=== PATIENT | female | born 1995 | race Caucasian/White ===

== ENCOUNTER 2016-11-03 11:26 | Emergency (ER) | payer MEDICAID ==
[~2016-11-03] VITALS: Ht 162.6 cm; Wt 74.8 kg
[~2016-11-03 11:26] MED LIST: ALBUPOW26; PRE NATAL VITAMINS
[2016-11-03 12:02] LABS: Basophils # (auto) 0.1 uL; Basophils % (auto) 0.6 % (0.0-2.0); Eosinophils # (auto) 0.1 uL; Eosinophils % (auto) 0.8 % (0.0-7.0); Hematocrit 37.5 % (36.0-46.0); Hemoglobin 12.6 g/dL (12.2-16.2); Lymphocytes # (auto) 1.5 uL; Lymphocytes % (auto) 17.4 % (10.0-50.0); Mean Corpuscular Hemoglobin 29.9 pg (28.0-32.0); Mean Corpuscular Hgb Conc. 33.6 g/dL (32.0-36.0); Mean Corpuscular Volume 89.1 fL (80.0-100.0); Monocytes # (auto) 0.7 uL; Monocytes % (auto) 7.5 % (0.0-12.0); Neutrophils # (auto) 6.4 uL; Neutrophils % (auto) 73.7 % (37.0-80.0); Platelet Count (auto) 254 10^3/uL (140-450); Red Cell Distribution Width 12.9 % (11.6-16.0); White Blood Cell 8.7 10^3/uL (4.4-10.8)
[2016-11-03 12:07] LABS: Urine Bilirubin Negative (Negative); Urine Blood Negative /uL (Negative); Urine Color Straw (Yellow); Urine Glucose Normal (Normal); Urine Ketone Negative (Negative); Urine Nitrite Negative (Negative); Urine RBC 6 /hpf (0 - 4); Urine Squamous Epithelial Cell MOD /hpf (<5); Urine Urobilinogen Normal (Negative); Urine pH 6.5 (5.0-8.0)
[2016-11-03 12:42] LABS: Albumin 3.8 g/dL (3.4-5.0); BUN/Creatinine Ratio 8.1; Bilirubin, Total 0.3 mg/dL (0.2-1.0); Calcium 8.8 mg/dL (8.5-10.1); Potassium 3.8 mmol/L (3.5-5.1); Total Protein 7.8 g/dL (6.4-8.2)
[2016-11-03] MEDS ORDERED: SODIUM CHLORIDE 0.9% 1,000 ML IVB ONE (13:13)
[2016-11-03] MEDS ORDERED: cefTRIAXone 1GM/50ML D5W 50 ML IV ONE (13:15)
[2016-11-03] MEDS ORDERED: ONDANSETRON HCL 4 MG/2 ML VIAL IV ONE (13:15)
[2016-11-03 14:55] VITALS: BP 135/78
== END 2016-11-03 15:20 | disposition home or self-care (01) ==
LOC: ER 11:26
DX: N39.0 Urinary tract infection, site not specified (principal); K52.9 Noninfective gastroenteritis and colitis, unspecified
CPT/HCPCS: 36415; 80053; 81001; 81025; 85025; 94761; 96365; 96375; 99284; J0696; J2405; J7030

== ENCOUNTER 2016-11-23 08:47 | Emergency (ER) | payer MEDICAID ==
[~2016-11-23] VITALS: Ht 162.6 cm; Wt 72.6 kg
[2016-11-23 08:57] VITALS: BP 128/54
== END 2016-11-23 11:55 | disposition home or self-care (01) ==
LOC: ER 08:47
DX: S90.31XA Contusion of right foot, initial encounter (principal); J45.909 Unspecified asthma, uncomplicated; X58.XXXA Exposure to other specified factors, initial encounter; Y93.89 Activity, other specified; Y99.8 Other external cause status; Y92.89 Other specified places as the place of occurrence of the external cause
CPT/HCPCS: 73630

== ENCOUNTER 2017-01-20 14:18 | Emergency (ER) | payer MEDICAID ==
[~2017-01-20] VITALS: Ht 162.6 cm; Wt 81.6 kg
[2017-01-20 14:32] VITALS: BP 132/77
[2017-01-20 14:53] LABS: Basophils # (auto) 0 uL; Basophils % (auto) 0.5 % (0.0-2.0); Eosinophils # (auto) 0.1 uL; Eosinophils % (auto) 1.5 % (0.0-7.0); Hematocrit 40.1 % (36.0-46.0); Hemoglobin 13.5 g/dL (12.2-16.2); Lymphocytes # (auto) 1.8 uL; Lymphocytes % (auto) 25.2 % (10.0-50.0); Mean Corpuscular Hemoglobin 30.6 pg (28.0-32.0); Mean Corpuscular Hgb Conc. 33.7 g/dL (32.0-36.0); Mean Platelet Volume 8.8 fL (7.4-10.4); Monocytes # (auto) 0.6 uL; Monocytes % (auto) 8.5 % (0.0-12.0); Neutrophils # (auto) 4.6 uL; Neutrophils % (auto) 64.3 % (37.0-80.0); Platelet Count (auto) 312 10^3/uL (140-450); Red Cell Distribution Width 12.8 % (11.6-16.0); White Blood Cell 7.2 10^3/uL (4.4-10.8)
[2017-01-20 15:14] LABS: Albumin 3.8 g/dL (3.4-5.0); Alkaline Phosphatase 98 U/L (45-117); Anion Gap 7 (5-15); Aspartate Aminotransferase 18 U/L (15-37); BUN/Creatinine Ratio 14.4; Bilirubin, Total 0.2 mg/dL (0.2-1.0); Blood Urea Nitrogen 14 mg/dL (7-18); Calcium 8.9 mg/dL (8.5-10.1); Carbon Dioxide 28 mmol/L (21-32); Chloride 105 mmol/L (98-107); GFR African American 92 mL/min; GFR Non-African American 76 mL/min; Glucose 114 mg/dL (74-106); Magnesium 2.5 mg/dL (1.6-2.6); Potassium 3.8 mmol/L (3.5-5.1); Sodium 140 mmol/L (136-145); Total Protein 8.1 g/dL (6.4-8.2)
== END 2017-01-20 18:56 | disposition left against medical advice (07) ==
LOC: ER 14:43
DX: R07.9 Chest pain, unspecified (principal); Z53.21 Procedure and treatment not carried out due to patient leaving prior to being seen by health care provider
CPT/HCPCS: 36415; 80053; 83735; 84484; 85025

== ENCOUNTER → 2018-10-17 | Outpatient (CLI) | payer MEDICAID ==
[2018-10-17 12:18] LABS: Basophils # (auto) 0 uL; Basophils % (auto) 0.3 % (0.0-2.0); Eosinophils # (auto) 0 uL; Eosinophils % (auto) 0.3 % (0.0-7.0); Hematocrit 42.9 % (36.0-46.0); Hemoglobin 14.6 g/dL (12.2-16.2); Lymphocytes # (auto) 1.7 uL; Lymphocytes % (auto) 16.1 % (10.0-50.0); Mean Corpuscular Hemoglobin 30.7 pg (28.0-32.0); Mean Corpuscular Volume 90.2 fL (80.0-100.0); Monocytes # (auto) 0.6 uL; Monocytes % (auto) 5.7 % (0.0-12.0); Neutrophils # (auto) 8.1 uL; Neutrophils % (auto) 77.6 % (37.0-80.0); Nucleated Red Blood Cells % 0.1 %; Platelet Count (auto) 292 10^3/uL (140-450); Red Blood Cells 4.76 10^6/uL (4.0-5.20); White Blood Cell 10.4 10^3/uL (4.4-10.8)
[2018-10-17 13:14] LABS: Alcohol, Urine < 3.0 mg/dL (0-5); Amphetamine Screen, Urine NEGATIVE (NEGATIVE); Barbiturate Scree,Urine NEGATIVE (NEGATIVE); Benzodiazephine Screen, Urine NEGATIVE (NEGATIVE); Cannabinoid Screen, Urine NEGATIVE (NEGATIVE); Cocaine Screen, Urine NEGATIVE (NEGATIVE); Opiate Scree,Urine NEGATIVE (NEGATIVE); Phencyclidine Screen, Urine NEGATIVE (NEGATIVE)
== END | disposition home or self-care (01) ==
LOC: LAB 10:39
PROVIDERS: ATTEND Specialist
DX: Z34.81 Encounter for supervision of other normal pregnancy, first trimester (principal); Z3A.01 Less than 8 weeks gestation of pregnancy
CPT/HCPCS: 36415; 80307; 83036; 84702; 85025; 86703; 86762; 86850; 86900; 86901; 87086; 87340

== ENCOUNTER 2018-12-09 14:57 | Emergency (ER) | payer MEDICAID ==
[~2018-12-09] VITALS: Ht 162.6 cm; Wt 78.9 kg
[2018-12-09 15:55] LABS: Urine Bacteria FEW /hpf (None Seen); Urine Blood Negative /uL (Negative); Urine Specific Gravity 1.003 (1.001-1.035); Urine WBC 2 /hpf (0 - 5)
[2018-12-09 17:57] VITALS: BP 121/68
== END 2018-12-09 17:57 | disposition home or self-care (01) ==
LOC: ER 14:59
DX: O23.41 Unspecified infection of urinary tract in pregnancy, first trimester (principal); O26.891 Other specified pregnancy related conditions, first trimester; R51 Headache; Z3A.13 13 weeks gestation of pregnancy
CPT/HCPCS: 81001

== ENCOUNTER 2019-02-03 16:41 | Observation (INO) | payer MEDICAID | END 2019-02-03 20:17 | disposition home or self-care (01) | DRG 563 | LOC: LDRP 16:41 | PROVIDERS: ADMIT Obstetrics & Gynecology; ATTEND Obstetrics & Gynecology | DX: O60.02 Preterm labor without delivery, second trimester (principal); Z3A.21 21 weeks gestation of pregnancy | CPT/HCPCS: 59025; 76805; 81002; G0378 ==

== ENCOUNTER 2019-03-28 17:25 | Observation (INO) | payer MEDICAID ==
[~2019-03-28] VITALS: Ht 162.6 cm; Wt 79.4 kg
[2019-03-28] MEDS ORDERED: ACETAMINOPHEN 500 MG TAB PO ONE (18:30)
== END 2019-03-28 20:06 | disposition home or self-care (01) | DRG 566 ==
LOC: LDRP 17:25
PROVIDERS: ADMIT Obstetrics & Gynecology; ATTEND Obstetrics & Gynecology
DX: O26.93 Pregnancy related conditions, unspecified, third trimester (principal); R10.9 Unspecified abdominal pain; R51 Headache; Z3A.29 29 weeks gestation of pregnancy
CPT/HCPCS: 59025; 76815; 81002; G0378

== ENCOUNTER 2019-04-04 16:10 | Observation (INO) | payer MEDICAID ==
[2019-04-04] MEDS ORDERED: BETAMETHASONE ACET (6MG/ML) 5ML VIAL IM SCH (16:57)
== END 2019-04-04 17:55 | disposition home or self-care (01) | DRG 566 ==
LOC: LDRP 16:10
PROVIDERS: ADMIT Obstetrics & Gynecology; ATTEND Obstetrics & Gynecology
DX: O36.0130 Maternal care for anti-D [Rh] antibodies, third trimester, not applicable or unspecified (principal); Z3A.30 30 weeks gestation of pregnancy
CPT/HCPCS: 59025; 81002; 96372; G0378; J0702

== ENCOUNTER 2019-04-05 17:10 | Observation (INO) | payer MEDICAID ==
[~2019-04-05] VITALS: Ht 162.6 cm; Wt 81.6 kg
[~2019-04-05 17:10] MED LIST changes: -ALBUPOW26
[2019-04-05] MEDS ORDERED: BETAMETHASONE ACET (6MG/ML) 5ML VIAL IM ONE (17:30)
== END 2019-04-05 18:15 | disposition home or self-care (01) | DRG 566 ==
LOC: LDRP 17:10
PROVIDERS: ADMIT Specialist; ATTEND Specialist
DX: O36.0130 Maternal care for anti-D [Rh] antibodies, third trimester, not applicable or unspecified (principal); Z3A.30 30 weeks gestation of pregnancy
CPT/HCPCS: 59025; 81002; 96372; G0378

== ENCOUNTER 2019-04-23 13:11 | Observation (INO) | payer MEDICAID ==
[~2019-04-23] VITALS: Ht 162.6 cm; Wt 80.3 kg
[2019-04-23] MEDS ORDERED: HYDR250I6 IM (13:41)
[2019-04-23] MEDS ORDERED: ALBUAER3 IN (13:42)
[2019-04-23] MEDS ORDERED: TERBUTALINE SULFATE 1 MG/ML 1ML VIAL SC SCH (15:00)
== END 2019-04-23 16:16 | disposition home or self-care (01) | DRG 566 ==
LOC: LDRP 13:11
PROVIDERS: ADMIT Specialist; ATTEND Specialist
DX: O26.893 Other specified pregnancy related conditions, third trimester (principal); R10.9 Unspecified abdominal pain; Z3A.32 32 weeks gestation of pregnancy
CPT/HCPCS: 59025; 81002; 96372; G0378; J3105

== ENCOUNTER 2019-04-24 11:35 | Observation (INO) | payer MEDICAID ==
[~2019-04-24 11:35] MED LIST changes: +ALBUAER3 IN; +HYDR250I6 IM
== END 2019-04-24 14:58 | disposition home or self-care (01) | DRG 566 ==
LOC: LDRP 11:35
PROVIDERS: ADMIT Specialist; ATTEND Specialist
DX: O26.893 Other specified pregnancy related conditions, third trimester (principal); F31.9 Bipolar disorder, unspecified; R10.9 Unspecified abdominal pain; O99.343 Other mental disorders complicating pregnancy, third trimester; F41.9 Anxiety disorder, unspecified; O99.513 Diseases of the respiratory system complicating pregnancy, third trimester; J45.909 Unspecified asthma, uncomplicated; Z3A.32 32 weeks gestation of pregnancy
CPT/HCPCS: 76815; G0378; 59025; 81002

== ENCOUNTER 2019-04-28 12:42 | Observation (INO) | payer MEDICAID | END 2019-04-28 14:30 | disposition home or self-care (01) | DRG 563 | LOC: LDRP 12:42 | PROVIDERS: ADMIT Specialist; ATTEND Specialist | DX: O60.03 Preterm labor without delivery, third trimester (principal); Z3A.37 37 weeks gestation of pregnancy | CPT/HCPCS: 59025; 81002; G0378 ==

== ENCOUNTER 2019-05-04 14:58 | Observation (INO) | payer MEDICAID ==
[2019-05-04] MEDS ORDERED: TERBUTALINE SULFATE 1 MG/ML 1ML VIAL SC ONE (15:37)
[2019-05-04] MEDS ORDERED: LACTATED RINGER'S 1,000 ML IV ONE (15:45)
[2019-05-04] MEDS ORDERED: TERBUTALINE SULFATE 1 MG/ML 1ML VIAL SC SCH (15:45)
== END 2019-05-04 16:31 | disposition home or self-care (01) | DRG 563 ==
LOC: LDRP 14:58
PROVIDERS: ADMIT Specialist; ATTEND Specialist
DX: O60.03 Preterm labor without delivery, third trimester (principal); Z3A.34 34 weeks gestation of pregnancy
CPT/HCPCS: 59025; 81002; 96372; G0378; J3105; 96365

== ENCOUNTER 2019-05-05 08:48 | Observation (INO) | payer MEDICAID ==
[~2019-05-05] VITALS: Ht 162.6 cm; Wt 83.9 kg
[2019-05-05] MEDS ORDERED: TERBUTALINE SULFATE 1 MG/ML 1ML VIAL SC ONE ×2 (09:55→10:00)
== END 2019-05-05 12:26 | disposition home or self-care (01) | DRG 563 ==
LOC: LDRP 08:48
PROVIDERS: ADMIT Specialist; ATTEND Specialist
DX: O60.03 Preterm labor without delivery, third trimester (principal); Z3A.34 34 weeks gestation of pregnancy
CPT/HCPCS: 59025; 76815; 81002; 96372; G0378; J3105

== ENCOUNTER 2019-05-11 14:55 | Observation (INO) | payer MEDICAID | END 2019-05-11 16:05 | disposition home or self-care (01) | DRG 563 | LOC: LDRP 14:55 | PROVIDERS: ADMIT Obstetrics & Gynecology; ATTEND Obstetrics & Gynecology | DX: O60.03 Preterm labor without delivery, third trimester (principal); Z3A.35 35 weeks gestation of pregnancy | CPT/HCPCS: 59025; 81002; G0378 ==

== ENCOUNTER 2019-05-15 16:45 | Observation (INO) | payer MEDICAID ==
[~2019-05-15] VITALS: Ht 162.6 cm; Wt 81.6 kg
[~2019-05-15 16:45] MED LIST changes: -ALBUAER3 IN
[2019-05-15] MEDS ORDERED: LACTATED RINGER'S 1,000 ML IV ONE (17:32)
[2019-05-15] MEDS ORDERED: NIF10C GT (17:40)
[2019-05-15] MEDS ORDERED: TERBUTALINE SULFATE 1 MG/ML 1ML VIAL SC ONE (18:57)
[2019-05-15] MEDS: TERBUTALINE SULFATE 1 MG/ML 1ML VIAL SC SCH ×2 (20:27→20:57)
== END 2019-05-15 22:00 | disposition home or self-care (01) | DRG 566 ==
LOC: LDRP 16:45
PROVIDERS: ADMIT Specialist; ATTEND Specialist
DX: O62.9 Abnormality of forces of labor, unspecified (principal); O26.893 Other specified pregnancy related conditions, third trimester; N89.8 Other specified noninflammatory disorders of vagina; Z3A.35 35 weeks gestation of pregnancy
CPT/HCPCS: 59025; 76815; 81002; 96372; G0378; J3105; 96365; 96366

== ENCOUNTER 2019-05-17 15:50 | Observation (INO) | payer MEDICAID ==
[~2019-05-17 15:50] MED LIST changes: -HYDR250I6 IM; +NIF10C GT
== END 2019-05-17 16:35 | disposition home or self-care (01) | DRG 566 ==
LOC: LDRP 15:50
PROVIDERS: ADMIT Specialist; ATTEND Specialist
DX: O62.9 Abnormality of forces of labor, unspecified (principal); Z3A.36 36 weeks gestation of pregnancy
CPT/HCPCS: 59025; 81002; G0378

== ENCOUNTER 2019-05-27 17:00 | Observation (INO) | payer MEDICAID ==
[~2019-05-27] VITALS: Ht 152.4 cm; Wt 83.0 kg
[~2019-05-27 17:00] MED LIST changes: -NIF10C GT
[2019-05-27 18:33] LABS: Basophils # (auto) 0 uL; Basophils % (auto) 0.4 % (0.0-2.0); Eosinophils # (auto) 0 uL; Eosinophils % (auto) 0.5 % (0.0-7.0); Hematocrit 30.2 % (36.0-46.0); Hemoglobin 10.4 g/dL (12.2-16.2); Lymphocytes % (auto) 21.9 % (10.0-50.0); Mean Corpuscular Hemoglobin 29.7 pg (28.0-32.0); Mean Corpuscular Hgb Conc. 34.4 g/dL (32.0-36.0); Mean Corpuscular Volume 86.4 fL (80.0-100.0); Monocytes # (auto) 0.7 uL; Monocytes % (auto) 8.1 % (0.0-12.0); Neutrophils # (auto) 6.2 uL; Neutrophils % (auto) 69.1 % (37.0-80.0); Platelet Count (auto) 154 10^3/uL (140-450); Red Blood Cells 3.49 10^6/uL (4.0-5.20); Red Cell Distribution Width 12.9 % (11.8-14.3)
[2019-05-27 18:39] LABS: Urine Bacteria NONE SEEN /hpf (None Seen); Urine Blood 2+ /uL (Negative); Urine Specific Gravity 1.003 (1.001-1.035); Urine WBC 37 /hpf (0 - 5)
[2019-05-27 18:59] LABS: Albumin 2.2 g/dL (3.4-5.0); Calcium 8.1 mg/dL (8.5-10.1); Potassium 3.4 mmol/L (3.5-5.1)
[2019-05-27 19:04] LABS: BUN/Creatinine Ratio 6.8; Bilirubin, Total 0.3 mg/dL (0.2-1.0); Total Protein 5.8 g/dL (6.4-8.2)
[2019-05-27 19:06] LABS: INR 1.01 (0.9-1.15); Partial Thromboplastin Time 24.7 sec (23.64-32.05)
== END 2019-05-27 19:48 | disposition home or self-care (01) | DRG 566 ==
LOC: LDRP 17:00
PROVIDERS: ADMIT Obstetrics & Gynecology; ATTEND Obstetrics & Gynecology
DX: O62.9 Abnormality of forces of labor, unspecified (principal); O12.03 Gestational edema, third trimester; O46.93 Antepartum hemorrhage, unspecified, third trimester; Z3A.37 37 weeks gestation of pregnancy
CPT/HCPCS: 36415; 59025; 80053; 81001; 81002; 84550; 85025; 85379; 85610; 85730; G0378

== ENCOUNTER 2019-06-07 09:32 | Inpatient (IN) | payer MEDICAID ==
[~2019-06-07] VITALS: Ht 162.6 cm; Wt 83.0 kg
[2019-06-07] MEDS ORDERED: LACTATED RINGER'S 1,000 ML IV SCH (10:07)
[2019-06-07] MEDS ORDERED: LACT. RINGERS/OXYTOCIN 20UNITS 1,000 ML IV SCH (10:07)
[2019-06-07] MEDS ORDERED: DERMOPLAST 60ML BOTTLE TOP PRN (10:15)
[2019-06-07] MEDS ORDERED: CARBOPROST TROMETHAMINE 250 MCG/1ML VIAL IM PRN (10:15)
[2019-06-07] MEDS ORDERED: LIDOCAINE 1% (LOCAL ANESTH.) PF 5ml SDV IJ ONE (10:15)
[2019-06-07] MEDS ORDERED: NALBUPHINE HCL 10 MG/1ml INJECTION IV PRN (10:15)
[2019-06-07] MEDS ORDERED: PHISODERM TOP SOLN 240ML BTL TOP PRN (10:15)
[2019-06-07] MEDS ORDERED: LIDOCAINE 2%HCL (LOCAL ANESTH.) INJ 20ML MDV ID ONE (10:15)
[2019-06-07] MEDS ORDERED: WITCH HAZEL-GLYCERIN PAD TOP PRN (10:15)
[2019-06-07] MEDS ORDERED: METHYLERGONOVINE MALEATE 0.2 MG/ML AMP IM PRN (10:15)
[2019-06-07 10:49] LABS: Basophils # (auto) 0.1 uL; Basophils % (auto) 0.5 % (0.0-2.0); Eosinophils # (auto) 0 uL; Eosinophils % (auto) 0.2 % (0.0-7.0); Hematocrit 33.8 % (36.0-46.0); Hemoglobin 11.6 g/dL (12.2-16.2); Lymphocytes # (auto) 2.1 uL; Lymphocytes % (auto) 15.6 % (10.0-50.0); Mean Corpuscular Hemoglobin 29.1 pg (28.0-32.0); Mean Corpuscular Hgb Conc. 34.4 g/dL (32.0-36.0); Mean Corpuscular Volume 84.7 fL (80.0-100.0); Monocytes # (auto) 0.9 uL; Monocytes % (auto) 6.4 % (0.0-12.0); Neutrophils # (auto) 10.3 uL; Neutrophils % (auto) 77.3 % (37.0-80.0); Platelet Count (auto) 223 10^3/uL (140-450); Red Cell Distribution Width 13.3 % (11.8-14.3); White Blood Cell 13.3 10^3/uL (4.4-10.8)
[2019-06-07 11:04] LABS: Albumin 2.6 g/dL (3.4-5.0); Calcium 8.6 mg/dL (8.5-10.1); Potassium 3.7 mmol/L (3.5-5.1)
[2019-06-07 11:12] LABS: INR 0.95 (0.9-1.15)
[2019-06-07 11:13] LABS: Bilirubin, Total 0.3 mg/dL (0.2-1.0); Total Protein 6.9 g/dL (6.4-8.2); Uric Acid 5.3 mg/dL (2.6-6.0)
[2019-06-07 11:40] LABS: Urine Bacteria NONE SEEN /hpf (None Seen); Urine Blood 1+ /uL (Negative); Urine Specific Gravity 1.007 (1.001-1.035); Urine WBC 67 /hpf (0 - 5)
[2019-06-07] MEDS ORDERED: METHYLERGONOVINE MALEATE 0.2 MG/ML AMP IM ONE (12:00)
[2019-06-07] MEDS ORDERED: IBUPROFEN 600 MG TAB PO PRN (12:00)
[2019-06-07] MEDS ORDERED: ACETAMINOPHEN 325 MG TAB PO PRN (12:00)
--- NOTE | 2019-06-07 12:58 | NUR ---
Ambulation: Patient OOB with standby assistance by RN. Patient ambulated to bathroom with steady gait. Patient able to void without difficulty 600 ml. [facility] teaching provided with returned demonstration by patient. Clean gown provided and bed linen changed. Patient ambulated back to bed with steady gait and no distress noted.
--- NOTE | 2019-06-07 13:15 | NUR ---
Teaching: Reviewed information in [facility] booklet with patient. Discussed benefits of and risks associated with not . Discussed different positions, proper latch, feeding cues, and baby-led . Provided information of medication side effects related to . All questions and concerns addressed at this time. Patient verbalized understanding of information.
[2019-06-07] MEDS ORDERED: INFLUENZA QUAD 2019-2020 0.5ml SYRG IM ONE (13:45)
[2019-06-07 15:20] VITALS: BP 133/67
[2019-06-07 15:30] LABS: Alcohol, Urine < 3.0 mg/dL (0-5); Amphetamine Screen, Urine NEGATIVE (NEGATIVE); Barbiturate Scree,Urine NEGATIVE (NEGATIVE); Benzodiazephine Screen, Urine NEGATIVE (NEGATIVE); Cannabinoid Screen, Urine NEGATIVE (NEGATIVE); Cocaine Screen, Urine NEGATIVE (NEGATIVE); Opiate Scree,Urine NEGATIVE (NEGATIVE); Phencyclidine Screen, Urine NEGATIVE (NEGATIVE)
--- NOTE | 2019-06-07 18:35 | NUR ---
Opening Shift Note Received report from DIANA Cruz and assumed care of patient, awake and alert. No S/S of distress/SOB or pain. Instructed to call for assist if needed and verbalized understanding. Will continue to monitor .
[2019-06-07 19:00] VITALS: BP 131/81
--- NOTE | 2019-06-07 20:30 | NUR ---
Ambulation: Patient OOB and ambulated to bathroom with steady gait. Patient able to void without difficulty. [facility] care teaching provided with returned demonstration by patient. Patient ambulated back to bed with steady gait and no distress noted.
[2019-06-07 23:00] VITALS: BP 117/58
--- NOTE | 2019-06-07 23:00 | NUR ---
IV removal IV at the R AC dc'd with sterile technique, catheter fully intact. Pressure dressing applied to site. Patient tolerated well.
[2019-06-08 03:00] VITALS: BP 133/85
[2019-06-08] MEDS ORDERED: TETANUS-DIPTH-ACEL PERTUSSIS 0.5ML SYRG IM ONE (03:15)
--- NOTE | 2019-06-08 03:38 | NUR ---
Pain: Patient called c/o perineal pain and abdominal craps. Pain scale 6/10. Motrin 600 mg PO given. Will continue to monitor.
--- NOTE | 2019-06-08 06:16 | NUR ---
Report received from Bandar Almeida RN on stable pt. Assumed care. Addendum: 06/08/19 at 0681 by Tasia Christianson RN Amended: Links added.
[2019-06-08 06:39] VITALS: BP 108/68
[2019-06-08] MEDS ORDERED: DOCUSATE CALCIUM 240 MG CAP PO SCH (10:00)
[2019-06-08 11:01] VITALS: BP 121/70
--- NOTE | 2019-06-08 12:31 | NUR ---
Discharge: Discharge instructions given as ordered. Pt encouraged to follow up with HR MANAGER as instructed. All questions and concerns addressed. Patient verbalized understanding. Medication reconciliation completed and copy given to patient. All required/requested vaccines given and copies of vaccinations given to patient. Patient encouraged to prepare to depart unit.
[2019-06-08 13:14] LABS: RPR Non Reactive (Non Reactive); Rubella Antibodies, IgG 2.36 index (Immune >0.99)
--- NOTE | 2019-06-08 13:15 | NUR ---
Discharge: Patient ambulated per request to vehicle with all personal belongings, accompanied by staff and family member. No distress noted at time of departure, no adverse changes in status since initial assessment.
== END 2019-06-08 13:15 | disposition home or self-care (01) | DRG 560 ==
LOC: LDRP 09:32 → OBSVTOIN 09:55 → LDRP 17:07
PROVIDERS: ADMIT Obstetrics & Gynecology; ATTEND Obstetrics & Gynecology
PROC: 10E0XZZ Delivery of Products of Conception, External Approach (ICD-10-PCS; principal; 2019-06-07)
PROC: 0KQM0ZZ Repair Perineum Muscle, Open Approach (ICD-10-PCS; 2019-06-07)
DX: O62.3 Precipitate labor (principal); O70.1 Second degree perineal laceration during delivery; Z37.0 Single live birth; Z3A.39 39 weeks gestation of pregnancy
CPT/HCPCS: 36415; 80053; 80307; 81001; 81002; 84112; 84550; 85025; 85610; 85730; 86592; 86762; 86850; 86900; 86901; 90715; 94760; 96366; 96372; G0378; J2590